=== PATIENT | male | born 1940 | race Two or more races ===

== ENCOUNTER 2023-07-16 15:24 | Inpatient (IN) | payer MEDICARE, OTHER ==
[~2023-07-16] VITALS: Ht 172.7 cm; Wt 79.0 kg
[2023-07-16 16:11] LABS: BASOPHILS # (AUTO) 0.1 K/uL (0.0-0.2); BASOPHILS % (AUTO) 0.9 % (0.0-2.0); EOSINOPHILS # (AUTO) 0.1 K/uL (0.0-0.7); HEMATOCRIT 31 % (39-51); HEMOGLOBIN 10.2 g/dL (13.5-17.5); LYMPHOCYTES % (AUTO) 24.4 % (20.0-44.0); MEAN CORPUSCULAR HEMOGLOBIN 32 PG (26.0-33.0); MEAN CORPUSCULAR HGB CONC 33 g/dl (31.0-36.0); MEAN CORPUSCULAR VOLUME 97 fL (80-96); MONOCYTES # (AUTO) 0.9 K/uL (0.1-1.30); MONOCYTES % (AUTO) 10.5 % (2.0-12.0); NEUTROPHILS # (AUTO) 5.1 K/uL (1.8-8.9); NEUTROPHILS % (AUTO) 63.2 % (43.0-81.0); PLATELET COUNT (AUTO) 502 K/uL (150-450); RED BLOOD CELL COUNT(AUTO) 3.23 MIL/uL (4.5-6.0); RED CELL DISTRIBUTION WIDTH 21.9 % (11.5-15.0); WHITE BLOOD COUNT (AUTO) 8.2 K/uL (4.3-11.0)
[2023-07-16] MEDS: IV NS 0.9% 250 ML BAG IV ONE ×2 (16:13→17:44)
[2023-07-16 16:25] LABS: CALCIUM, SERUM 9.5 mg/dL (8.5-10.1); CARBON DIOXIDE 28 mmol/L (21-32); CHLORIDE 102 mmol/L (98-107); CREATININE 0.8 mg/dL (0.6-1.3); GLUCOSE 135 mg/dL (74-106); INR 1.05 (0.91-1.10); PARTIAL THROMBOPLASTIN TIME 32.2 SEC (24.3-34.3); POTASSIUM 4.2 mmol/L (3.5-5.1); PROTHROMBIN TIME 10.8 SECS (9.2-11.1); SODIUM SERUM 136 mmol/L (136-145); UREA NITROGEN, BLOOD 17 mg/dL (7-18)
[2023-07-16 16:36] LABS: LACTIC ACID 2.7 mmol/L (0.4-2.0)
[2023-07-16 16:40] LABS: ALANINE AMINOTRANSFERASE 13 U/L (12-78); ALBUMIN 2.8 g/dL (3.4-5.0); ALKALINE PHOSPHATASE 114 U/L (46-116); ASPARTATE AMINOTRANSFERASE 20 U/L (15-37); BILIRUBIN,DIRECT 0.1 mg/dL (0.0-0.2); BILIRUBIN,TOTAL 0.5 mg/dL (0.2-1.0); TOTAL PROTEIN, SERUM 6.5 g/dL (6.4-8.2)
[2023-07-16 16:46] LABS: APPEARANCE,URINE Clear (CLEAR); BILIRUBIN,URINE Negative (NEGATIVE); BLOOD, URINE Negative Ery/uL (NEGATIVE); COLOR,URINE LIGHT YELLOW (YELLOW); KETONES,URINE Negative (NEGATIVE); LEUKOCYTE ESTERASE ,URINE Small (NEGATIVE); NITRITE, URINE Positive (NEGATIVE); PROTEIN,URINE Negative (NEGATIVE); UGLUCOSE Negative (NEGATIVE); UROBILINOGEN,URINE 0.2 EU/dL (0.2)
[2023-07-16 17:00] LABS: ADD URINE CULTURE YES; BACTERIA,URINE Moderate /HPF (None Seen); SQUAMOUS EPITHELIAL CELL,UR Few /HPF (None Seen); WBC,URINE 21-50 /HPF (0-3)
[2023-07-16] MEDS ORDERED: D5W IV ONE (17:00)
[2023-07-16] MEDS ORDERED: AMIKACIN IV ONE (17:00)
[2023-07-16] MEDS ORDERED: DOCU100T2 PO (17:22)
[2023-07-16] MEDS ORDERED: PANT40TA2 PO (17:22)
[2023-07-16] MEDS ORDERED: GABA-532 PO (17:22)
[2023-07-16] MEDS ORDERED: CARB1TAB21 PO (17:22)
[2023-07-16] MEDS ORDERED: ATOR10TA PO (17:22)
[2023-07-16] MEDS ORDERED: APIX5TAB PO (17:22)
[2023-07-16] MEDS ORDERED: FINA5TAB11 PO (17:22)
[2023-07-16] MEDS ORDERED: FOLI0.4T6 PO (17:22)
[2023-07-16] MEDS ORDERED: ALLO100T PO (17:22)
[2023-07-16] MEDS ORDERED: MIRT-90 PO (17:22)
[2023-07-16] MEDS ORDERED: DULO60CA45 PO (17:22)
[2023-07-16] MEDS: AMIKACIN 1,000 MG in IV D5W 100 ML IV ONE (17:44)
[2023-07-16 20:55] VITALS: BP 118/61; TEMP 97.7; O2SAT 98
[2023-07-16] MEDS ORDERED: MAGNESIUM HYDROXIDE 30 ML UDC PO PRN (21:00)
[2023-07-16] MEDS ORDERED: Z GUARD REMEDY 4 OZ OINT TP PRN (21:00)
[2023-07-16] MEDS ORDERED: ONDANSETRON HCL/PF 4 MG/2 ML VIAL IVP PRN (21:00)
[2023-07-16] MEDS: IV NS 0.9% 1,000 ML IV PRN (22:13)
[2023-07-16] MEDS: MIRTAZAPINE 15 MG TABLET PO SCH (22:47)
[2023-07-16] MEDS: CARBIDOPA/LEVODOPA 25/100 MG 1 UDTAB PO SCH (22:47)
[2023-07-16] MEDS: ACETAMINOPHEN 325 MG TABLET PO PRN (22:47)
[2023-07-17] MEDS ORDERED: DOSING PER PHARMACY-AMIKACI IV XX PRN (01:00)
[2023-07-17 06:55] LABS: BASOPHILS # (AUTO) 0.1 K/uL (0.0-0.2); EOSINOPHILS # (AUTO) 0.1 K/uL (0.0-0.7); EOSINOPHILS % (AUTO) 1.4 % (0.0-6.0); HEMATOCRIT 28 % (39-51); HEMOGLOBIN 9.2 g/dL (13.5-17.5); LYMPHOCYTES # (AUTO) 1.8 K/uL (0.8-4.8); LYMPHOCYTES % (AUTO) 21.1 % (20.0-44.0); MEAN CORPUSCULAR HEMOGLOBIN 32 PG (26.0-33.0); MEAN CORPUSCULAR HGB CONC 33 g/dl (31.0-36.0); MEAN CORPUSCULAR VOLUME 97 fL (80-96); MONOCYTES # (AUTO) 1.1 K/uL (0.1-1.30); MONOCYTES % (AUTO) 12.7 % (2.0-12.0); NEUTROPHILS # (AUTO) 5.6 K/uL (1.8-8.9); NEUTROPHILS % (AUTO) 63.8 % (43.0-81.0); PLATELET COUNT (AUTO) 435 K/uL (150-450); RED BLOOD CELL COUNT(AUTO) 2.91 MIL/uL (4.5-6.0); RED CELL DISTRIBUTION WIDTH 21.8 % (11.5-15.0); WHITE BLOOD COUNT (AUTO) 8.7 K/uL (4.3-11.0)
[2023-07-17 07:30] VITALS: BP 141/73; TEMP 98.6; O2SAT 96
[2023-07-17 07:52] LABS: THYROID STIMULATING HORMONE 3.594 uIU/mL (0.358-3.74)
[2023-07-17 07:54] LABS: CALCIUM, SERUM 9.6 mg/dL (8.5-10.1); CREATININE 0.7 mg/dL (0.6-1.3); MAGNESIUM 1.8 mg/dL (1.8-2.4); PHOSPHORUS 3.2 mg/dL (2.5-4.9); POTASSIUM 4.1 mmol/L (3.5-5.1)
[2023-07-17] MEDS: DOCUSATE SODIUM 100 MG CAPSULE PO SCH (08:28)
[2023-07-17] MEDS: PANTOPRAZOLE 40 MG TABLET.DR PO SCH (08:28)
[2023-07-17] MEDS: ALLOPURINOL 100 MG TABLET PO SCH (08:28)
[2023-07-17] MEDS: ATORVASTATIN 10 MG TABLET PO SCH (08:28)
[2023-07-17] MEDS: FOLIC ACID 1 MG TABLET PO SCH (08:28)
[2023-07-17] MEDS: FINASTERIDE (5 MG) 5 MG TABLET PO SCH (08:28)
[2023-07-17] MEDS: DULOXETINE HCL 30 MG CAPSULE.DR PO SCH (08:28)
[2023-07-17] MEDS: GABAPENTIN 100 MG CAPSULE PO SCH (08:28)
[2023-07-17] MEDS: APIXABAN 5 MG TABLET PO SCH (08:30)
[2023-07-17] MEDS: MEROPENEM 1 G in IV NS 0.9% 100 ML IV SCH (09:55)
[2023-07-17] MEDS: THERAHONEY GEL 1.5 OZ TUBE TP SCH (10:35)
[2023-07-17] MEDS: PROSOURCE / PROSTAT (PYXIS) 30 ML UDC PO SCH (12:16)
[2023-07-17 16:00] VITALS: BP 114/64; TEMP 98.6; O2SAT 96
[2023-07-17] MEDS: ARGININE/GLUTAMINE/CALCIUM BMB 1 EACH POWD.PACK PO SCH (16:23)
[2023-07-17] MEDS: AMIKACIN 1,000 MG in IV D5W 100 ML IV SCH (17:54)
[2023-07-17 20:08] VITALS: BP 125/73; TEMP 99.1; O2SAT 97
[2023-07-18 06:59] LABS: BASOPHILS # (AUTO) 0.1 K/uL (0.0-0.2); BASOPHILS % (AUTO) 0.7 % (0.0-2.0); EOSINOPHILS # (AUTO) 0.1 K/uL (0.0-0.7); EOSINOPHILS % (AUTO) 1.3 % (0.0-6.0); HEMATOCRIT 28 % (39-51); HEMOGLOBIN 9.3 g/dL (13.5-17.5); LYMPHOCYTES # (AUTO) 2.2 K/uL (0.8-4.8); MEAN CORPUSCULAR HEMOGLOBIN 32 PG (26.0-33.0); MEAN CORPUSCULAR HGB CONC 33 g/dl (31.0-36.0); MEAN CORPUSCULAR VOLUME 96 fL (80-96); MONOCYTES % (AUTO) 11.5 % (2.0-12.0); NEUTROPHILS # (AUTO) 5.6 K/uL (1.8-8.9); NEUTROPHILS % (AUTO) 62.5 % (43.0-81.0); PLATELET COUNT (AUTO) 435 K/uL (150-450); RED BLOOD CELL COUNT(AUTO) 2.93 MIL/uL (4.5-6.0); RED CELL DISTRIBUTION WIDTH 21.7 % (11.5-15.0)
[2023-07-18 07:00] VITALS: BP 129/65; TEMP 97.7; O2SAT 98
[2023-07-18 07:11] LABS: ALBUMIN 2.4 g/dL (3.4-5.0); BILIRUBIN,TOTAL 0.4 mg/dL (0.2-1.0); CREATININE 0.8 mg/dL (0.6-1.3); MAGNESIUM 1.9 mg/dL (1.8-2.4); PHOSPHORUS 3.2 mg/dL (2.5-4.9); POTASSIUM 3.9 mmol/L (3.5-5.1); TOTAL PROTEIN, SERUM 5.7 g/dL (6.4-8.2)
[2023-07-18 07:16] LABS: CALCIUM, SERUM 9.8 mg/dL (8.5-10.1)
[2023-07-18 08:59] LABS: BAND % (MANUAL) 3 % (0.0-5.0); LYMPHOCYTES % (MANUAL) 18 % (16-48); NEUTROPHILS % (MANUAL) 57 (42-76)
[2023-07-18 09:00] LABS: ANISOCYTOSIS 1+; EOSINOPHILS % (MANUAL) 1 % (0-4); METAMYELOCYTES % 3 % (0-0); MONOCYTES % (MANUAL) 17 % (0-11.0); MYELOCYTES % 1 % (0-0); OVALOCYTES 1+; PLATELET ESTIMATE ADEQUATE
[2023-07-18 09:01] LABS: STOMATOCYTES 1+
[2023-07-18 16:00] VITALS: BP 114/70; TEMP 99.1; O2SAT 96
[2023-07-18 20:00] VITALS: BP 98/52; TEMP 98.4; O2SAT 98
[2023-07-19 16:00] VITALS: BP 126/63; TEMP 99; O2SAT 98
[2023-07-19 20:00] VITALS: BP 104/54; TEMP 98.8; O2SAT 95
[2023-07-20 07:00] VITALS: BP 128/73; TEMP 97.7; O2SAT 96
[2023-07-20 16:00] VITALS: BP 126/67; TEMP 99.1; O2SAT 100
[2023-07-20 20:00] VITALS: BP 124/60; TEMP 99.3; O2SAT 95
[2023-07-21 08:00] VITALS: BP 128/70; TEMP 98.4; O2SAT 97
[2023-07-21] MEDS: NITROFURANTOIN/MONOHYDRATE MACROCRYSTALS 100 MG CAPSULE PO SCH (14:06)
[2023-07-21 16:13] VITALS: BP 123/65; TEMP 97.9; O2SAT 94
[2023-07-21 20:00] VITALS: BP 122/60; TEMP 97.5; O2SAT 97
[2023-07-21 20:44] VITALS: BP 122/60; TEMP 97.5; O2SAT 97
[2023-07-22 07:21] LABS: BASOPHILS # (AUTO) 0.1 K/uL (0.0-0.2); BASOPHILS % (AUTO) 1.1 % (0.0-2.0); EOSINOPHILS # (AUTO) 0.2 K/uL (0.0-0.7); EOSINOPHILS % (AUTO) 1.6 % (0.0-6.0); HEMATOCRIT 27 % (39-51); LYMPHOCYTES # (AUTO) 2.1 K/uL (0.8-4.8); LYMPHOCYTES % (AUTO) 22.3 % (20.0-44.0); MEAN CORPUSCULAR HEMOGLOBIN 33 PG (26.0-33.0); MEAN CORPUSCULAR HGB CONC 34 g/dl (31.0-36.0); MEAN CORPUSCULAR VOLUME 96 fL (80-96); MONOCYTES % (AUTO) 11.1 % (2.0-12.0); NEUTROPHILS % (AUTO) 63.9 % (43.0-81.0); PLATELET COUNT (AUTO) 383 K/uL (150-450); RED BLOOD CELL COUNT(AUTO) 2.78 MIL/uL (4.5-6.0); RED CELL DISTRIBUTION WIDTH 20.6 % (11.5-15.0); WHITE BLOOD COUNT (AUTO) 9.3 K/uL (4.3-11.0)
[2023-07-22 08:00] VITALS: BP 134/75; TEMP 98.6; O2SAT 95
[2023-07-22 09:06] LABS: CALCIUM, SERUM 11.2 mg/dL (8.5-10.1); CREATININE 0.6 mg/dL (0.6-1.3); MAGNESIUM 1.9 mg/dL (1.8-2.4); PHOSPHORUS 2.2 mg/dL (2.5-4.9); POTASSIUM 3.8 mmol/L (3.5-5.1)
[2023-07-22] MEDS ORDERED: COLL30OI TP (14:29)
[2023-07-22] MEDS ORDERED: NITR100C15 PO (14:29)
[2023-07-22 16:02] VITALS: BP 111/54; TEMP 98.2; O2SAT 95
[2023-07-22] MEDS: K PHOS NEUTRAL 250 MG TABLET PO ONE (17:15)
== END 2023-07-22 18:30 | disposition home or self-care (01) | DRG 689 ==
LOC: ER 15:30 → TELE 19:57 → MED 21:12
PROVIDERS: ADMIT Nurse Practitioner Family; ATTEND Nurse Practitioner Acute Care
DX: N39.0 Urinary tract infection, site not specified (principal); L89.153 Pressure ulcer of sacral region, stage 3; D68.59 Other primary thrombophilia; E44.0 Moderate protein-calorie malnutrition; Z16.24 Resistance to multiple antibiotics; E87.20 Acidosis, unspecified; Z74.01 Bed confinement status; E78.5 Hyperlipidemia, unspecified; Z87.440 Personal history of urinary (tract) infections; G20.A1 Parkinson's disease without dyskinesia, without mention of fluctuations; Z85.528 Personal history of other malignant neoplasm of kidney; Z79.01 Long term (current) use of anticoagulants; Z79.899 Other long term (current) drug therapy; F32.A Depression, unspecified; D64.9 Anemia, unspecified; E88.09 Other disorders of plasma-protein metabolism, not elsewhere classified; Z86.19 Personal history of other infectious and parasitic diseases; N31.9 Neuromuscular dysfunction of bladder, unspecified; Z96.0 Presence of urogenital implants; L89.312 Pressure ulcer of right buttock, stage 2
CPT/HCPCS: 36415; 71045-TC; 80048-TC; 80053-TC; 80061-TC; 80076-TC; 80150; 81001; 82728-TC; 83540-TC; 83605-TC; 83735-TC; 84100-TC; 84443-TC; 84484-TC; 85025-TC; 85730-TC; 87040-TC; 87081-TC; 87086-TC; 97110-TC; 97112-TC; 97530-TC; A4223; A6403; G0378; J0278; J2185; J7030; J7050; J7060

== ENCOUNTER 2023-08-21 11:27 | Inpatient (IN) | payer MEDICARE, OTHER ==
[~2023-08-21] VITALS: Ht 175.3 cm; Wt 81.6 kg
[~2023-08-21 11:27] MED LIST: ALLO100T PO; APIX5TAB PO; ATOR10TA PO; CARB1TAB21 PO; COLL30OI TP; DOCU100T2 PO; DULO60CA45 PO; FINA5TAB11 PO; FOLI0.4T6 PO; GABA-532 PO; MIRT-90 PO; NITR100C15 PO; PANT40TA2 PO
[2023-08-21] MEDS: IV NS 0.9% 1,000 ML BAG IV ONE ×2 (11:59→12:56)
[2023-08-21 12:02] LABS: EOSINOPHILS # (AUTO) 0.3 K/uL (0.0-0.7)
[2023-08-21 12:05] LABS: BASOPHILS # (AUTO) 0.1 K/uL (0.0-0.2); BASOPHILS % (AUTO) 0.9 % (0.0-2.0); EOSINOPHILS % (AUTO) 3.7 % (0.0-6.0); HEMATOCRIT 26 % (39-51); HEMOGLOBIN 8.3 g/dL (13.5-17.5); LYMPHOCYTES # (AUTO) 1.6 K/uL (0.8-4.8); LYMPHOCYTES % (AUTO) 18.9 % (20.0-44.0); MEAN CORPUSCULAR HEMOGLOBIN 29 PG (26.0-33.0); MEAN CORPUSCULAR HGB CONC 33 g/dl (31.0-36.0); MEAN CORPUSCULAR VOLUME 89 fL (80-96); MONOCYTES # (AUTO) 0.7 K/uL (0.1-1.30); MONOCYTES % (AUTO) 7.7 % (2.0-12.0); NEUTROPHILS % (AUTO) 68.8 % (43.0-81.0); PLATELET COUNT (AUTO) 401 K/uL (150-450); RED BLOOD CELL COUNT(AUTO) 2.88 MIL/uL (4.5-6.0); RED CELL DISTRIBUTION WIDTH 17.8 % (11.5-15.0); WHITE BLOOD COUNT (AUTO) 8.7 K/uL (4.3-11.0)
[2023-08-21 12:17] LABS: INR 1.14 (0.91-1.10); PARTIAL THROMBOPLASTIN TIME 33.5 SEC (24.3-34.3); PROTHROMBIN TIME 11.6 SECS (9.2-11.1)
[2023-08-21 12:30] LABS: APPEARANCE,URINE Cloudy (CLEAR); BILIRUBIN,URINE Negative (NEGATIVE); BLOOD, URINE Small Ery/uL (NEGATIVE); COLOR,URINE YELLOW (YELLOW); KETONES,URINE Negative (NEGATIVE); LEUKOCYTE ESTERASE ,URINE Large (NEGATIVE); NITRITE, URINE Negative (NEGATIVE); PROTEIN,URINE 100 mg/dl (NEGATIVE); UGLUCOSE Negative (NEGATIVE); UROBILINOGEN,URINE 0.2 EU/dL (0.2)
[2023-08-21 12:30] LABS: LACTIC ACID 2.1 mmol/L (0.4-2.0)
[2023-08-21 12:32] LABS: ALANINE AMINOTRANSFERASE 8 U/L (12-78); ALBUMIN 2.3 g/dL (3.4-5.0); ALKALINE PHOSPHATASE 87 U/L (46-116); ASPARTATE AMINOTRANSFERASE 24 U/L (15-37); BILIRUBIN,DIRECT 0.1 mg/dL (0.0-0.2); BILIRUBIN,TOTAL 0.2 mg/dL (0.2-1.0); CARBON DIOXIDE 27 mmol/L (21-32); CHLORIDE 101 mmol/L (98-107); CREATININE 1.1 mg/dL (0.6-1.3); GLUCOSE 121 mg/dL (74-106); POTASSIUM 3.9 mmol/L (3.5-5.1); SODIUM SERUM 130 mmol/L (136-145); TOTAL PROTEIN, SERUM 6.2 g/dL (6.4-8.2); UREA NITROGEN, BLOOD 19 mg/dL (7-18)
[2023-08-21 12:38] LABS: CALCIUM, SERUM 14.1 mg/dL (8.5-10.1)
[2023-08-21 12:41] LABS: SERUM AMMONIA 16 umol/L (11-32)
[2023-08-21 12:46] LABS: ADD URINE CULTURE YES; BACTERIA,URINE 3+ /HPF (None Seen); YEAST,URINE Hyphal filaments /HPF (None Seen)
[2023-08-21 12:49] LABS: CALCIUM OXALATE CRYSTALS,UR Few /HPF (None Seen); MUCUS,URINE Few /LPF (None Seen); URINE AMORPHOUS URATE Moderate /HPF (None Seen)
[2023-08-21] MEDS ORDERED: CEFTRIAXONE 1GM BAG (ER ONLY) 50 ML IV ONE (12:57)
[2023-08-21] MEDS: CEFTRIAXONE 1 G in IV D5W 50 ML IV ONE (13:00)
[2023-08-21 13:02] LABS: THYROID STIMULATING HORMONE 5.352 uIU/mL (0.358-3.74)
[2023-08-21] MEDS ORDERED: BISA10SU11 RC (13:31)
[2023-08-21] MEDS ORDERED: CHOL100043 PO (13:31)
[2023-08-21] MEDS ORDERED: SENN-18 PO (13:31)
[2023-08-21] MEDS ORDERED: MULT-213 PO (13:31)
[2023-08-21] MEDS ORDERED: ASCO-495 PO (13:31)
[2023-08-21] MEDS ORDERED: FURO-144 PO (13:31)
[2023-08-21] MEDS ORDERED: POLY17PO4 PO (13:31)
[2023-08-21] MEDS ORDERED: BUPR2TAB3 SL (13:31)
[2023-08-21] MEDS ORDERED: ASPI-1420 PO (13:31)
[2023-08-21] MEDS ORDERED: ACET-2030 PO (13:31)
[2023-08-21] MEDS ORDERED: GABA300C PO (13:31)
[2023-08-21] MEDS ORDERED: TAMS-12 PO (13:31)
[2023-08-21] MEDS ORDERED: HYDR-4209 PO (13:31)
[2023-08-21] MEDS ORDERED: ZOLPIDEM TARTRATE 5 MG TABLET PO PRN (14:30)
[2023-08-21] MEDS ORDERED: MEROPENEM 500 MG in IV NS 0.9% 50 ML IV SCH (14:30)
[2023-08-21] MEDS ORDERED: ONDANSETRON HCL/PF 4 MG/2 ML VIAL IVP PRN (14:30)
[2023-08-21 16:00] VITALS: BP 117/62; TEMP 97.3; O2SAT 97
[2023-08-21] MEDS: APIXABAN 5 MG TABLET PO SCH (17:00)
[2023-08-21] MEDS: SENNOSIDES 8.6 MG TABLET PO SCH (17:00)
[2023-08-21] MEDS: CARBIDOPA/LEVODOPA 25/100 MG 1 UDTAB PO SCH (17:00)
[2023-08-21] MEDS: GABAPENTIN 300 MG CAPSULE PO SCH (17:00)
[2023-08-21] MEDS: IV D5/ 0.9% NACL 1,000 ML IV PRN (17:38)
[2023-08-21 20:00] VITALS: BP 116/58; TEMP 97.8; TEMP 97.9; O2SAT 100
[2023-08-21] MEDS: ACETAMINOPHEN ES 500 MG TABLET PO SCH (20:29)
[2023-08-21] MEDS: MEROPENEM 500 MG in IV NS 0.9% 50 ML IV SCH (20:32)
[2023-08-21] MEDS: MIRTAZAPINE 15 MG TABLET PO SCH (22:17)
[2023-08-22] VITALS: BP 123/53; TEMP 97.7; O2SAT 100
[2023-08-22 04:00] VITALS: BP 117/51; TEMP 97.5; O2SAT 97
[2023-08-22 06:58] LABS: BASOPHILS # (AUTO) 0.1 K/uL (0.0-0.2); EOSINOPHILS # (AUTO) 0.3 K/uL (0.0-0.7); EOSINOPHILS % (AUTO) 4.2 % (0.0-6.0); HEMATOCRIT 26 % (39-51); HEMOGLOBIN 8.4 g/dL (13.5-17.5); LYMPHOCYTES # (AUTO) 1.2 K/uL (0.8-4.8); LYMPHOCYTES % (AUTO) 16.6 % (20.0-44.0); MEAN CORPUSCULAR HEMOGLOBIN 29 PG (26.0-33.0); MEAN CORPUSCULAR HGB CONC 33 g/dl (31.0-36.0); MEAN CORPUSCULAR VOLUME 90 fL (80-96); MONOCYTES # (AUTO) 0.6 K/uL (0.1-1.30); MONOCYTES % (AUTO) 8.6 % (2.0-12.0); NEUTROPHILS # (AUTO) 4.9 K/uL (1.8-8.9); NEUTROPHILS % (AUTO) 69.6 % (43.0-81.0); PLATELET COUNT (AUTO) 372 K/uL (150-450); RED BLOOD CELL COUNT(AUTO) 2.86 MIL/uL (4.5-6.0); RED CELL DISTRIBUTION WIDTH 17.8 % (11.5-15.0)
[2023-08-22 07:19] LABS: CREATININE 0.9 mg/dL (0.6-1.3); MAGNESIUM 1.8 mg/dL (1.8-2.4); PHOSPHORUS 2.6 mg/dL (2.5-4.9); POTASSIUM 3.6 mmol/L (3.5-5.1)
[2023-08-22 07:30] VITALS: BP 108/60; TEMP 97.9; O2SAT 99
[2023-08-22 07:31] LABS: CALCIUM, SERUM 14.2 mg/dL (8.5-10.1); THYROID STIMULATING HORMONE 4.613 uIU/mL (0.358-3.74)
[2023-08-22] MEDS ORDERED: ASCORBIC ACID 250 MG TABLET PO SCH (09:00)
[2023-08-22] MEDS ORDERED: PANTOPRAZOLE 40 MG TABLET.DR PO SCH (09:00)
[2023-08-22] MEDS: MULTIVITAMINS,THERAGRAN 1 UDTAB TABLET PO SCH (09:52)
[2023-08-22] MEDS: DULOXETINE HCL 30 MG CAPSULE.DR PO SCH (09:52)
[2023-08-22] MEDS: CHOLECALCIFEROL 1,000 UNIT TABLET (VIT D3) PO SCH (09:52)
[2023-08-22] MEDS: POLYETHYLENE GLYCOL 3350 17 GM POWD.PACK PO SCH (09:52)
[2023-08-22] MEDS: FINASTERIDE (5 MG) 5 MG TABLET PO SCH (09:52)
[2023-08-22] MEDS: ALLOPURINOL 100 MG TABLET PO SCH (09:52)
[2023-08-22] MEDS: ATORVASTATIN 10 MG TABLET PO SCH (09:52)
[2023-08-22] MEDS: ASCORBIC ACID 500 MG TABLET PO SCH (09:53)
[2023-08-22] MEDS: PANTOPRAZOLE 40 MG VIAL IV SCH (09:53)
[2023-08-22] MEDS: TAMSULOSIN 0.4 MG CAP.SR.24H PO SCH (09:54)
[2023-08-22] MEDS: ASPIRIN EC 81 MG TABLET.DR PO SCH (09:57)
[2023-08-22] MEDS: PAMIDRONATE 30 MG in IV NS 0.9% 500 ML IV ONE (15:20)
[2023-08-22] MEDS: VANCOMYCIN 1 GM in IV D5W 250 ML IV ONE (15:39)
[2023-08-22 16:00] VITALS: BP 128/88; TEMP 98.6; O2SAT 98
[2023-08-22 20:00] VITALS: BP 100/73; TEMP 97.5; O2SAT 100
[2023-08-22 21:30] VITALS: O2SAT 98
[2023-08-23] MEDS: VANCOMYCIN 750 MG in IV D5W 250 ML IV SCH (03:11)
[2023-08-23 08:00] VITALS: BP 116/57; TEMP 97.5; O2SAT 98
[2023-08-23 08:15] LABS: BASOPHILS # (AUTO) 0.1 K/uL (0.0-0.2); BASOPHILS % (AUTO) 0.9 % (0.0-2.0); EOSINOPHILS # (AUTO) 0.4 K/uL (0.0-0.7); EOSINOPHILS % (AUTO) 4.4 % (0.0-6.0); HEMATOCRIT 29 % (39-51); HEMOGLOBIN 9.2 g/dL (13.5-17.5); LYMPHOCYTES # (AUTO) 1.3 K/uL (0.8-4.8); LYMPHOCYTES % (AUTO) 14.6 % (20.0-44.0); MEAN CORPUSCULAR HEMOGLOBIN 30 PG (26.0-33.0); MEAN CORPUSCULAR HGB CONC 32 g/dl (31.0-36.0); MEAN CORPUSCULAR VOLUME 94 fL (80-96); MONOCYTES # (AUTO) 0.6 K/uL (0.1-1.30); NEUTROPHILS # (AUTO) 6.6 K/uL (1.8-8.9); NEUTROPHILS % (AUTO) 73.1 % (43.0-81.0); PLATELET COUNT (AUTO) 397 K/uL (150-450); RED BLOOD CELL COUNT(AUTO) 3.11 MIL/uL (4.5-6.0); RED CELL DISTRIBUTION WIDTH 18.3 % (11.5-15.0)
[2023-08-23 09:04] LABS: ALBUMIN 2.2 g/dL (3.4-5.0); CREATININE 0.8 mg/dL (0.6-1.3); POTASSIUM 3.7 mmol/L (3.5-5.1)
[2023-08-23 09:10] LABS: CALCIUM, SERUM 14.1 mg/dL (8.5-10.1)
[2023-08-23] MEDS: BISACODYL SUPP (10 MG) 10 MG/SUPP.RECT SUPP.RECT RC PRN (11:34)
[2023-08-23] MEDS: MEROPENEM 1 G in IV NS 0.9% 100 ML IV SCH (12:49)
[2023-08-23] MEDS: FERROUS SULFATE (325 MG) 325 MG/TAB TABLET PO SCH (15:50)
[2023-08-23 16:00] VITALS: BP 109/55; TEMP 97.3; O2SAT 95
[2023-08-23 19:59] VITALS: O2SAT 98
[2023-08-23 20:00] VITALS: BP 108/70; TEMP 97.5; O2SAT 100
[2023-08-24 06:12] LABS: BASOPHILS % (AUTO) 0.3 % (0.0-2.0); EOSINOPHILS # (AUTO) 0.2 K/uL (0.0-0.7); EOSINOPHILS % (AUTO) 2.2 % (0.0-6.0); HEMATOCRIT 30 % (39-51); HEMOGLOBIN 9.3 g/dL (13.5-17.5); LYMPHOCYTES % (AUTO) 9.3 % (20.0-44.0); MEAN CORPUSCULAR HEMOGLOBIN 30 PG (26.0-33.0); MEAN CORPUSCULAR HGB CONC 31 g/dl (31.0-36.0); MEAN CORPUSCULAR VOLUME 96 fL (80-96); MONOCYTES # (AUTO) 0.7 K/uL (0.1-1.30); NEUTROPHILS # (AUTO) 8.5 K/uL (1.8-8.9); NEUTROPHILS % (AUTO) 81.2 % (43.0-81.0); PLATELET COUNT (AUTO) 385 K/uL (150-450); RED BLOOD CELL COUNT(AUTO) 3.11 MIL/uL (4.5-6.0); RED CELL DISTRIBUTION WIDTH 18.2 % (11.5-15.0); WHITE BLOOD COUNT (AUTO) 10.5 K/uL (4.3-11.0)
[2023-08-24 06:55] LABS: CALCIUM, SERUM 12.5 mg/dL (8.5-10.1); CARBON DIOXIDE 21 mmol/L (21-32); CHLORIDE 106 mmol/L (98-107); CREATININE 0.8 mg/dL (0.6-1.3); GLUCOSE 78 mg/dL (74-106); MAGNESIUM 1.9 mg/dL (1.8-2.4); PHOSPHORUS 2.4 mg/dL (2.5-4.9); SODIUM SERUM 137 mmol/L (136-145); UREA NITROGEN, BLOOD 13 mg/dL (7-18)
[2023-08-24] MEDS: PANTOPRAZOLE 40 MG TABLET.DR PO SCH (09:12)
[2023-08-24 10:57] LABS: OCCULT BLOOD STOOL NEGATIVE (NEGATIVE)
[2023-08-24] MEDS: DAKINS QUARTER STRENGTH (0.125%) 480 ML BOTTLE TOP SCH (12:08)
[2023-08-24] MEDS: THERAHONEY GEL 1.5 OZ TUBE TP SCH (12:10)
[2023-08-24] MEDS: PROSOURCE / PROSTAT (PYXIS) 30 ML UDC PO SCH (13:31)
[2023-08-24] MEDS ORDERED: MISCELLANEOUS MED 1 EA EA XX ONE (15:30)
[2023-08-24 16:00] VITALS: BP 105/55; TEMP 97.7; O2SAT 96
[2023-08-24] MEDS: ARGININE/GLUTAMINE/CALCIUM BMB 1 EACH POWD.PACK PO SCH (16:12)
[2023-08-24] MEDS: NEUTRA PHOS 1 POWD.PACKET PO ONE (16:13)
[2023-08-24] MEDS: ENSURE ENLIVE CHOC 237 ML CAN PO SCH (16:14)
[2023-08-24] MEDS: PAMIDRONATE 30 MG in IV NS 0.9% 500 ML IV ONE (18:24)
[2023-08-24 20:00] VITALS: BP 122/53; TEMP 97.9; O2SAT 98
[2023-08-24 20:01] VITALS: O2SAT 98
[2023-08-24 21:00] VITALS: O2SAT 99
[2023-08-24 23:11] LABS: VIT D, 25-HYDROXY 33.1 ng/mL (30.0-100.0)
[2023-08-25 01:10] LABS: FOLIC ACID > 20.0 ng/mL (>3.0); PTH, INTACT 5 pg/mL (15-65)
[2023-08-25 03:59] VITALS: O2SAT 95
[2023-08-25 06:08] LABS: *SPE ALBUMIN 2.5 g/dL (2.9-4.4); *SPE ALPHA-1-GLOBULIN 0.3 g/dL (0.0-0.4); *SPE ALPHA-2-GLOBULIN 0.9 g/dL (0.4-1.0); *SPE BETA GLOBULIN 0.9 g/dL (0.7-1.3); *SPE GLOBULIN, TOTAL 2.5 g/dL (2.2-3.9); *SPE M-SPIKE Not Observed g/dL (Not Observed); *SPEGAMMA GLOBULIN 0.5 g/dL (0.4-1.8)
[2023-08-25 07:23] LABS: CALCIUM, SERUM 11.7 mg/dL (8.5-10.1); CREATININE 0.7 mg/dL (0.6-1.3); MAGNESIUM 1.7 mg/dL (1.8-2.4); POTASSIUM 3.9 mmol/L (3.5-5.1)
[2023-08-25 07:44] LABS: PHOSPHORUS 2.2 mg/dL (2.5-4.9)
[2023-08-25 08:00] VITALS: BP 113/56; TEMP 98.8; O2SAT 96
[2023-08-25 08:17] LABS: IMMUNOGLOBULIN A, SERUM 277 mg/dL (61-437); IMMUNOGLOBULIN G, SERUM 684 mg/dL (603-1613); IMMUNOGLOBULIN M, SERUM 26 mg/dL (15-143)
[2023-08-25] MEDS: MAGNESIUM OXIDE 400 MG TABLET PO ONE (09:41)
[2023-08-25 11:03] LABS: BASOPHILS # (AUTO) 0.1 K/uL (0.0-0.2); BASOPHILS % (AUTO) 0.6 % (0.0-2.0); EOSINOPHILS # (AUTO) 0.3 K/uL (0.0-0.7); EOSINOPHILS % (AUTO) 2.8 % (0.0-6.0); HEMATOCRIT 23 % (39-51); HEMOGLOBIN 7.7 g/dL (13.5-17.5); LYMPHOCYTES # (AUTO) 1.2 K/uL (0.8-4.8); MEAN CORPUSCULAR HEMOGLOBIN 29 PG (26.0-33.0); MEAN CORPUSCULAR HGB CONC 33 g/dl (31.0-36.0); MEAN CORPUSCULAR VOLUME 90 fL (80-96); MONOCYTES # (AUTO) 0.8 K/uL (0.1-1.30); MONOCYTES % (AUTO) 8.1 % (2.0-12.0); NEUTROPHILS % (AUTO) 75.5 % (43.0-81.0); PLATELET COUNT (AUTO) 339 K/uL (150-450); RED BLOOD CELL COUNT(AUTO) 2.61 MIL/uL (4.5-6.0); RED CELL DISTRIBUTION WIDTH 18.1 % (11.5-15.0); WHITE BLOOD COUNT (AUTO) 9.3 K/uL (4.3-11.0)
[2023-08-25] MEDS: LORAZEPAM INJ 2 MG/ML VIAL IV ONE (11:52)
[2023-08-25 16:00] VITALS: BP 105/57; TEMP 98.4; O2SAT 98
[2023-08-25] MEDS: K PHOS NEUTRAL 250 MG TABLET PO ONE (16:02)
[2023-08-25 16:12] LABS: FREE KAPPA LT CHAINS SERUM 49.1 mg/L (3.3-19.4); FREE LAMBDA LT CHAIN SERUM 48.2 mg/L (5.7-26.3); KAPPA/LAMBDA RATIO SERUM 1.02 (0.26-1.65)
[2023-08-25] MEDS: SOD FERRIC GLUC 125 MG in IV NS 0.9% 100 ML IV SCH (16:49)
[2023-08-25 20:00] VITALS: BP 148/67; TEMP 98.2; O2SAT 94
[2023-08-26] VITALS (8 sets, daily range): BP systolic 96–116; BP diastolic 44–59; TEMP 98–99; O2SAT 93–100
[2023-08-26 06:50] LABS: BASOPHILS % (AUTO) 0.3 % (0.0-2.0); EOSINOPHILS # (AUTO) 0.2 K/uL (0.0-0.7); EOSINOPHILS % (AUTO) 2.2 % (0.0-6.0); HEMATOCRIT 25 % (39-51); HEMOGLOBIN 8.2 g/dL (13.5-17.5); LYMPHOCYTES # (AUTO) 1.3 K/uL (0.8-4.8); LYMPHOCYTES % (AUTO) 15.2 % (20.0-44.0); MEAN CORPUSCULAR HEMOGLOBIN 30 PG (26.0-33.0); MEAN CORPUSCULAR HGB CONC 33 g/dl (31.0-36.0); MEAN CORPUSCULAR VOLUME 91 fL (80-96); MONOCYTES # (AUTO) 0.8 K/uL (0.1-1.30); MONOCYTES % (AUTO) 9.4 % (2.0-12.0); NEUTROPHILS # (AUTO) 6.4 K/uL (1.8-8.9); NEUTROPHILS % (AUTO) 72.9 % (43.0-81.0); PLATELET COUNT (AUTO) 357 K/uL (150-450); RED BLOOD CELL COUNT(AUTO) 2.71 MIL/uL (4.5-6.0); RED CELL DISTRIBUTION WIDTH 17.7 % (11.5-15.0); WHITE BLOOD COUNT (AUTO) 8.8 K/uL (4.3-11.0)
[2023-08-26 10:04] LABS: CALCIUM, SERUM 10.9 mg/dL (8.5-10.1); CARBON DIOXIDE 20 mmol/L (21-32); CHLORIDE 108 mmol/L (98-107); CREATININE 0.7 mg/dL (0.6-1.3); GLUCOSE 66 mg/dL (74-106); MAGNESIUM 1.8 mg/dL (1.8-2.4); POTASSIUM 3.6 mmol/L (3.5-5.1); SODIUM SERUM 138 mmol/L (136-145); UREA NITROGEN, BLOOD 15 mg/dL (7-18)
[2023-08-26] MEDS: NEUTRA PHOS 1 POWD.PACKET PO ONE (16:17)
[2023-08-26] MEDS: ALBUTEROL FS 2.5 MG/0.5 ML VIAL.NEB NEB SCH (16:19)
[2023-08-26] MEDS: IPRATROPIUM NEB FS 0.5 MG/2.5 ML AMPUL.NEB NEB SCH (16:19)
[2023-08-27] VITALS (14 sets, daily range): BP systolic 106–117; BP diastolic 46–56; TEMP 97.8–98.4; O2SAT 95–99
[2023-08-27] MEDS: SODIUM CL FOR INHALATION 3% 15 ML VIAL.NEB IH ONE (01:24)
[2023-08-27 10:09] LABS: FREE PSA < 0.06 ng/mL (0.00-45)
[2023-08-27 10:13] LABS: PROSTATE SPECIFIC ANTIGEN SCR < 0.13 ng/mL (0.00-4.00)
[2023-08-27] MEDS ORDERED: ERTA1VIA4 IV (10:13)
[2023-08-27] MEDS ORDERED: GADOTERATE MEGLUMINE 10 MMOL/20 ML VIAL IV ONE (14:01)
[2023-08-27] MEDS: HYDROCODONE/APAP 5/325MG TABLET PO PRN (20:00)
[2023-08-28] VITALS (13 sets, daily range): BP systolic 111–124; BP diastolic 53; TEMP 98.3–100.2; O2SAT 94–100
[2023-08-28 06:34] LABS: BASOPHILS % (AUTO) 0.5 % (0.0-2.0); EOSINOPHILS # (AUTO) 0.2 K/uL (0.0-0.7); EOSINOPHILS % (AUTO) 2.6 % (0.0-6.0); HEMATOCRIT 24 % (39-51); HEMOGLOBIN 7.8 g/dL (13.5-17.5); LYMPHOCYTES # (AUTO) 1.1 K/uL (0.8-4.8); LYMPHOCYTES % (AUTO) 17.1 % (20.0-44.0); MEAN CORPUSCULAR HEMOGLOBIN 28 PG (26.0-33.0); MEAN CORPUSCULAR HGB CONC 32 g/dl (31.0-36.0); MEAN CORPUSCULAR VOLUME 89 fL (80-96); MONOCYTES # (AUTO) 0.6 K/uL (0.1-1.30); MONOCYTES % (AUTO) 9.9 % (2.0-12.0); NEUTROPHILS # (AUTO) 4.4 K/uL (1.8-8.9); NEUTROPHILS % (AUTO) 69.9 % (43.0-81.0); PLATELET COUNT (AUTO) 373 K/uL (150-450); RED BLOOD CELL COUNT(AUTO) 2.73 MIL/uL (4.5-6.0); WHITE BLOOD COUNT (AUTO) 6.3 K/uL (4.3-11.0)
[2023-08-28 07:01] LABS: CALCIUM, SERUM 9.2 mg/dL (8.5-10.1); CREATININE 0.8 mg/dL (0.6-1.3); MAGNESIUM 1.6 mg/dL (1.8-2.4); PHOSPHORUS 1.6 mg/dL (2.5-4.9); POTASSIUM 3.7 mmol/L (3.5-5.1)
[2023-08-28] MEDS: Z GUARD REMEDY 4 OZ OINT TP PRN (08:38)
[2023-08-28] MEDS: CARBIDOPA/LEVODOPA 25/100 MG 1 UDTAB PO SCH (08:40)
[2023-08-28] MEDS: MAGNESIUM OXIDE 400 MG TABLET PO ONE (10:07)
[2023-08-28] MEDS: ACETYLCYSTEINE 10% SOLN 400 MG/4 ML VIAL NEB SCH (13:00)
[2023-08-28] MEDS: K PHOS NEUTRAL 250 MG TABLET PO ONE (15:24)
[2023-08-28 20:11] LABS: APPEARANCE,URINE BLOODY (CLEAR)
[2023-08-28 20:12] LABS: COLOR,URINE RED (YELLOW)
[2023-08-28 21:12] LABS: RBC,URINE TOO NUMEROUS TO COUN /HPF (0-2); WBC,URINE 51-80 /HPF (0-3)
[2023-08-28 21:13] LABS: BACTERIA,URINE 3+ /HPF (None Seen); SQUAMOUS EPITHELIAL CELL,UR 0-2 /HPF (None Seen); YEAST,URINE Few /HPF (None Seen)
[2023-08-29] VITALS (15 sets, daily range): BP systolic 124–149; BP diastolic 61–102; TEMP 97.7–98.6; O2SAT 92–99
[2023-08-29 06:13] LABS: BASOPHILS # (AUTO) 0.1 K/uL (0.0-0.2); BASOPHILS % (AUTO) 0.7 % (0.0-2.0); EOSINOPHILS # (AUTO) 0.3 K/uL (0.0-0.7); EOSINOPHILS % (AUTO) 3.3 % (0.0-6.0); HEMATOCRIT 26 % (39-51); HEMOGLOBIN 8.3 g/dL (13.5-17.5); LYMPHOCYTES # (AUTO) 2.2 K/uL (0.8-4.8); LYMPHOCYTES % (AUTO) 27.3 % (20.0-44.0); MEAN CORPUSCULAR HEMOGLOBIN 30 PG (26.0-33.0); MEAN CORPUSCULAR HGB CONC 33 g/dl (31.0-36.0); MEAN CORPUSCULAR VOLUME 91 fL (80-96); MONOCYTES # (AUTO) 0.8 K/uL (0.1-1.30); MONOCYTES % (AUTO) 9.9 % (2.0-12.0); NEUTROPHILS # (AUTO) 4.7 K/uL (1.8-8.9); NEUTROPHILS % (AUTO) 58.8 % (43.0-81.0); PLATELET COUNT (AUTO) 404 K/uL (150-450); RED BLOOD CELL COUNT(AUTO) 2.81 MIL/uL (4.5-6.0); RED CELL DISTRIBUTION WIDTH 18.6 % (11.5-15.0)
[2023-08-29 06:44] LABS: CALCIUM, SERUM 9.7 mg/dL (8.5-10.1); CREATININE 0.7 mg/dL (0.6-1.3); MAGNESIUM 1.8 mg/dL (1.8-2.4); PHOSPHORUS 2.1 mg/dL (2.5-4.9); POTASSIUM 3.7 mmol/L (3.5-5.1)
[2023-08-29] MEDS: K PHOS NEUTRAL 250 MG TABLET PO ONE (15:30)
[2023-08-30] VITALS (15 sets, daily range): BP systolic 118–125; BP diastolic 62–71; TEMP 97.5–98.6; O2SAT 94–100
[2023-08-30 06:35] LABS: BASOPHILS % (AUTO) 0.6 % (0.0-2.0); EOSINOPHILS # (AUTO) 0.1 K/uL (0.0-0.7); EOSINOPHILS % (AUTO) 1.4 % (0.0-6.0); HEMATOCRIT 23 % (39-51); HEMOGLOBIN 7.8 g/dL (13.5-17.5); LYMPHOCYTES # (AUTO) 1.1 K/uL (0.8-4.8); LYMPHOCYTES % (AUTO) 14.3 % (20.0-44.0); MEAN CORPUSCULAR HEMOGLOBIN 30 PG (26.0-33.0); MEAN CORPUSCULAR HGB CONC 33 g/dl (31.0-36.0); MEAN CORPUSCULAR VOLUME 88 fL (80-96); MONOCYTES # (AUTO) 0.6 K/uL (0.1-1.30); MONOCYTES % (AUTO) 7.6 % (2.0-12.0); NEUTROPHILS % (AUTO) 76.1 % (43.0-81.0); PLATELET COUNT (AUTO) 400 K/uL (150-450); RED BLOOD CELL COUNT(AUTO) 2.64 MIL/uL (4.5-6.0); WHITE BLOOD COUNT (AUTO) 7.9 K/uL (4.3-11.0)
[2023-08-30 06:57] LABS: CALCIUM, SERUM 8.8 mg/dL (8.5-10.1); CREATININE 0.8 mg/dL (0.6-1.3); POTASSIUM 3.4 mmol/L (3.5-5.1)
[2023-08-30] MEDS: POTASSIUM CL. PREMIX PERIPHER. 50 ML IV SCH (09:29)
[2023-08-30] MEDS: POTASSIUM PHOSPHATE MM 7.5 MMOL in IV NS 0.9% 100 ML IV SCH (15:26)
[2023-08-31] VITALS (15 sets, daily range): BP systolic 91–127; BP diastolic 46–75; TEMP 98.1–98.4; O2SAT 94–100
[2023-08-31 09:05] LABS: HEMOGLOBIN 8.3 g/dL (13.5-17.5); RED BLOOD CELL COUNT(AUTO) 2.89 MIL/uL (4.5-6.0); WHITE BLOOD COUNT (AUTO) 9.2 K/uL (4.3-11.0)
[2023-08-31 09:06] LABS: BASOPHILS % (AUTO) 0.4 % (0.0-2.0); EOSINOPHILS # (AUTO) 0.1 K/uL (0.0-0.7); EOSINOPHILS % (AUTO) 1.5 % (0.0-6.0); HEMATOCRIT 26 % (39-51); LYMPHOCYTES # (AUTO) 1.7 K/uL (0.8-4.8); LYMPHOCYTES % (AUTO) 18.7 % (20.0-44.0); MEAN CORPUSCULAR HEMOGLOBIN 29 PG (26.0-33.0); MEAN CORPUSCULAR HGB CONC 32 g/dl (31.0-36.0); MEAN CORPUSCULAR VOLUME 89 fL (80-96); MONOCYTES # (AUTO) 0.7 K/uL (0.1-1.30); MONOCYTES % (AUTO) 8.1 % (2.0-12.0); NEUTROPHILS # (AUTO) 6.6 K/uL (1.8-8.9); NEUTROPHILS % (AUTO) 71.3 % (43.0-81.0); PLATELET COUNT (AUTO) 422 K/uL (150-450); RED CELL DISTRIBUTION WIDTH 18.8 % (11.5-15.0)
[2023-08-31 09:12] LABS: CALCIUM, SERUM 8.5 mg/dL (8.5-10.1); CREATININE 0.9 mg/dL (0.6-1.3); POTASSIUM 3.5 mmol/L (3.5-5.1)
[2023-08-31] MEDS: ASPIRIN 81 MG TAB.CHEW PO SCH (10:06)
[2023-08-31] MEDS: APIXABAN 5 MG TABLET PO SCH (10:07)
[2023-08-31 18:31] LABS: HEMOGLOBIN 7.5 g/dL (13.5-17.5)
[2023-08-31 18:36] LABS: ABG BASE EXCESS -3.7 mmol/L; ABG OXYGEN SATURATION 94.5 % (92.0-98.5); ABG PCO2 30.1 mmHg (35.0-45.0); ABG PH 7.437 (7.350-7.450); ABG PO2 76.3 mmHg (75.0-100.0); ABG TOTAL HEMOGLOBIN 8.6 G/dL (13.5-18.0); COHb 0.3 % (0.5-1.5); MetHb 0.1 % (0.0-1.5); O2Hb 94.1 % (94.0-97.0); SITE, ABG Right Radial; VENT MODE, BG NASAL CANNULA
[2023-08-31] MEDS: FUROSEMIDE 20 MG/2 ML VIAL IV ONE (19:00)
[2023-09-01] VITALS (13 sets, daily range): BP systolic 114–148; BP diastolic 54–74; TEMP 98.2–98.6; O2SAT 94–100
[2023-09-01 06:47] LABS: BASOPHILS % (AUTO) 0.6 % (0.0-2.0); EOSINOPHILS # (AUTO) 0.1 K/uL (0.0-0.7); EOSINOPHILS % (AUTO) 1.9 % (0.0-6.0); HEMATOCRIT 23 % (39-51); HEMOGLOBIN 7.3 g/dL (13.5-17.5); LYMPHOCYTES % (AUTO) 14.5 % (20.0-44.0); MEAN CORPUSCULAR HEMOGLOBIN 29 PG (26.0-33.0); MEAN CORPUSCULAR HGB CONC 32 g/dl (31.0-36.0); MEAN CORPUSCULAR VOLUME 90 fL (80-96); MONOCYTES # (AUTO) 0.6 K/uL (0.1-1.30); NEUTROPHILS # (AUTO) 5.3 K/uL (1.8-8.9); PLATELET COUNT (AUTO) 324 K/uL (150-450); RED BLOOD CELL COUNT(AUTO) 2.51 MIL/uL (4.5-6.0); RED CELL DISTRIBUTION WIDTH 19.2 % (11.5-15.0); WHITE BLOOD COUNT (AUTO) 7.1 K/uL (4.3-11.0)
[2023-09-01 07:03] LABS: CALCIUM, SERUM 8.7 mg/dL (8.5-10.1); CARBON DIOXIDE 24 mmol/L (21-32); CHLORIDE 117 mmol/L (98-107); CREATININE 0.7 mg/dL (0.6-1.3); GLUCOSE 121 mg/dL (74-106); MAGNESIUM 1.8 mg/dL (1.8-2.4); PHOSPHORUS 1.9 mg/dL (2.5-4.9); SODIUM SERUM 147 mmol/L (136-145); UREA NITROGEN, BLOOD 20 mg/dL (7-18)
[2023-09-01] MEDS: POTASSIUM CHLORIDE 20 MEQ POWDER PACKET PO SCH ×2 (10:38→13:37)
[2023-09-01] MEDS: NEUTRA PHOS 1 POWD.PACKET PO ONE (16:21)
[2023-09-01 18:18] LABS: HEMOGLOBIN 7.5 g/dL (13.5-17.5)
[2023-09-02] VITALS (12 sets, daily range): BP systolic 119–125; BP diastolic 65–83; TEMP 98.4–100; O2SAT 92–99
[2023-09-02 06:53] LABS: BASOPHILS % (AUTO) 0.4 % (0.0-2.0); EOSINOPHILS # (AUTO) 0.1 K/uL (0.0-0.7); EOSINOPHILS % (AUTO) 1.3 % (0.0-6.0); HEMATOCRIT 26 % (39-51); HEMOGLOBIN 8.3 g/dL (13.5-17.5); LYMPHOCYTES # (AUTO) 1.6 K/uL (0.8-4.8); LYMPHOCYTES % (AUTO) 14.9 % (20.0-44.0); MEAN CORPUSCULAR HEMOGLOBIN 29 PG (26.0-33.0); MEAN CORPUSCULAR HGB CONC 32 g/dl (31.0-36.0); MEAN CORPUSCULAR VOLUME 90 fL (80-96); MONOCYTES # (AUTO) 0.6 K/uL (0.1-1.30); MONOCYTES % (AUTO) 5.8 % (2.0-12.0); NEUTROPHILS # (AUTO) 8.2 K/uL (1.8-8.9); NEUTROPHILS % (AUTO) 77.6 % (43.0-81.0); PLATELET COUNT (AUTO) 347 K/uL (150-450); RED BLOOD CELL COUNT(AUTO) 2.84 MIL/uL (4.5-6.0); RED CELL DISTRIBUTION WIDTH 19.4 % (11.5-15.0); WHITE BLOOD COUNT (AUTO) 10.6 K/uL (4.3-11.0)
[2023-09-02 07:27] LABS: CALCIUM, SERUM 8.8 mg/dL (8.5-10.1); CHLORIDE 112 mmol/L (98-107); CREATININE 0.8 mg/dL (0.6-1.3); GLUCOSE 106 mg/dL (74-106); POTASSIUM 3.5 mmol/L (3.5-5.1); SODIUM SERUM 144 mmol/L (136-145); UREA NITROGEN, BLOOD 30 mg/dL (7-18)
[2023-09-02 07:39] LABS: CARBON DIOXIDE 23 mmol/L (21-32)
[2023-09-02 18:48] LABS: HEMOGLOBIN 7.1 g/dL (13.5-17.5)
[2023-09-03] VITALS (9 sets, daily range): BP systolic 111–120; BP diastolic 58–65; TEMP 97.9–98.6; O2SAT 92–99
[2023-09-03 07:11] LABS: CARBON DIOXIDE 24 mmol/L (21-32); CHLORIDE 112 mmol/L (98-107); CREATININE 0.7 mg/dL (0.6-1.3); GLUCOSE 97 mg/dL (74-106); POTASSIUM 3.5 mmol/L (3.5-5.1); SODIUM SERUM 142 mmol/L (136-145); UREA NITROGEN, BLOOD 24 mg/dL (7-18)
[2023-09-03 07:16] LABS: BASOPHILS % (AUTO) 0.3 % (0.0-2.0); EOSINOPHILS # (AUTO) 0.2 K/uL (0.0-0.7); EOSINOPHILS % (AUTO) 1.3 % (0.0-6.0); HEMATOCRIT 25 % (39-51); HEMOGLOBIN 7.7 g/dL (13.5-17.5); LYMPHOCYTES # (AUTO) 1.8 K/uL (0.8-4.8); LYMPHOCYTES % (AUTO) 15.1 % (20.0-44.0); MEAN CORPUSCULAR HEMOGLOBIN 28 PG (26.0-33.0); MEAN CORPUSCULAR HGB CONC 31 g/dl (31.0-36.0); MEAN CORPUSCULAR VOLUME 92 fL (80-96); MONOCYTES # (AUTO) 0.5 K/uL (0.1-1.30); MONOCYTES % (AUTO) 4.5 % (2.0-12.0); NEUTROPHILS # (AUTO) 9.6 K/uL (1.8-8.9); NEUTROPHILS % (AUTO) 78.8 % (43.0-81.0); PLATELET COUNT (AUTO) 333 K/uL (150-450); RED BLOOD CELL COUNT(AUTO) 2.72 MIL/uL (4.5-6.0); RED CELL DISTRIBUTION WIDTH 19.8 % (11.5-15.0); WHITE BLOOD COUNT (AUTO) 12.2 K/uL (4.3-11.0)
[2023-09-03 18:12] LABS: HEMOGLOBIN 7.4 g/dL (13.5-17.5)
== END 2023-09-03 18:50 | disposition home health service (06) | DRG 698 ==
LOC: ER 11:30 → TELE 15:08 → MED 08-22 08:39
PROVIDERS: ADMIT Nurse Practitioner Acute Care; ATTEND Internal Medicine
PROC: 05HC33Z Insertion of Infusion Device into Left Basilic Vein, Percutaneous Approach (ICD-10-PCS; principal; 2023-08-31)
DX: T83.83XA Hemorrhage due to genitourinary prosthetic devices, implants and grafts, initial encounter (principal); A41.9 Sepsis, unspecified organism; G92.8 Other toxic encephalopathy; G93.41 Metabolic encephalopathy; R65.21 Severe sepsis with septic shock; J15.69 Pneumonia due to other Gram-negative bacteria; D68.59 Other primary thrombophilia; E87.1 Hypo-osmolality and hyponatremia; N39.0 Urinary tract infection, site not specified; C79.51 Secondary malignant neoplasm of bone; J81.1 Chronic pulmonary edema; E87.20 Acidosis, unspecified; J98.11 Atelectasis; C78.00 Secondary malignant neoplasm of unspecified lung; E83.52 Hypercalcemia; G20.A1 Parkinson's disease without dyskinesia, without mention of fluctuations; E78.5 Hyperlipidemia, unspecified; Z85.528 Personal history of other malignant neoplasm of kidney; Z79.82 Long term (current) use of aspirin; Z79.01 Long term (current) use of anticoagulants; Z79.899 Other long term (current) drug therapy; B96.89 Other specified bacterial agents as the cause of diseases classified elsewhere; R62.7 Adult failure to thrive; Z74.01 Bed confinement status; D63.8 Anemia in other chronic diseases classified elsewhere; E88.09 Other disorders of plasma-protein metabolism, not elsewhere classified; Y84.8 Other medical procedures as the cause of abnormal reaction of the patient, or of later complication, without mention of misadventure at the time of the procedure; Y92.009 Unspecified place in unspecified non-institutional (private) residence as the place of occurrence of the external cause; Y95 Nosocomial condition; E86.1 Hypovolemia; F32.A Depression, unspecified; J98.4 Other disorders of lung; L89.150 Pressure ulcer of sacral region, unstageable; L89.319 Pressure ulcer of right buttock, unspecified stage; Z78.9 Other specified health status; Z90.5 Acquired absence of kidney; Z87.440 Personal history of urinary (tract) infections
CPT/HCPCS: 31720; 36415; 36600; 70450-TC; 71045-TC; 71250-TC; 72157-TC; 72158-TC; 80048-TC; 80076-TC; 80202-TC; 81001; 82040-TC; 82140-TC; 82272-TC; 82306; 82378; 82607-TC; 82728-TC; 82784; 83540-TC; 83605-TC; 83615-TC; 83735-TC; 83880; 83970; 84100-TC; 84153-TC; 84154-TC; 84155; 84165; 84439-TC; 84443-TC; 84484-TC; 85025-TC; 85027-TC; 85730-TC; 86334; 87040-TC; 87081-TC; 87086-TC; 92526; 92611-TC; 93970-TC; 94640-TC; 94760-TC; 94761-TC; 94762-TC; 94799-TC; 97110-TC; 97530-TC; A4217; A4218; A4223; A6403; A9575; C9113; G0378; J0696; J1940; J2060; J2185; J2430; J2916; J3370; J3371; J3480; J3490; J7030; J7040; J7042; J7050; J7060